=== PATIENT | female | born 1970 | race Caucasian/White ===

== ENCOUNTER 2016-07-17 10:36 | Day surgery (SDC) | payer BC ==
[2016-07-17] MEDS ORDERED: Lactated Ringers 1,000 ML IV SCH (11:00)
[2016-07-17] MEDS ORDERED: Ferric Subsulfate Topical Soln 8 GM (8 ML) Bottle ONE (11:27)
[2016-07-17] MEDS ORDERED: Oxytocin/Normal Saline 30 UNIT/500 ML BAG ONE (11:27)
[2016-07-17] MEDS ORDERED: Silver Nitrate Applicator Each ONE (11:27)
[2016-07-17] MEDS ORDERED: Ketorolac 30 MG/ML SDV ONE (12:07)
[2016-07-17] MEDS ORDERED: Midazolam 1 MG/ML 2 ML SDV ONE (12:07)
[2016-07-17] MEDS ORDERED: fentaNYL 100 MCG/2 ML SDV ONE (12:07)
[2016-07-17] MEDS ORDERED: Propofol 200 MG/20 ML SDV ONE (12:07)
[2016-07-17] MEDS ORDERED: Ondansetron 4 MG/2 ML SDV ONE (12:07)
[2016-07-17] MEDS ORDERED: Succinylcholine 200 MG/10 ML MDV ONE (12:08)
[2016-07-17] MEDS ORDERED: Lidocaine 2% 20 ML MDV ONE (12:08)
[2016-07-17] MEDS ORDERED: ceFAZolin 2 GM in Premix Bag 1 BAG IV ONE (12:15)
[2016-07-17] MEDS ORDERED: Glycopyrrolate 0.2 MG/ML 2 ML SDV ONE (12:16)
--- NOTE | 2016-07-17 12:26 | HP ---
The patient will be having surgery at [facility] at about 12:30 p.m. today, about an hour from now or less. HISTORY OF PRESENT ILLNESS: This patient is a 46-year-old, 4, para 2 patient, who does have a 10-year-old and an 11-year-old child at home. This patient has had two previous sections. She has been followed by Dr. Shankar and unfortunately, recent transvaginal ultrasound revealed no heart tones or no viability whatsoever. That ultrasound was also confirmed at the hospital's Radiology Department. This past Friday, she would have been approximately 7 weeks and 2 days' gestation. She is known to have no viability as mentioned above. We did see her in the office this past Friday, the 15 of July, and gave her the options of possible Cytotec to evacuate the uterus versus possible D and C. The patient and I and her chose to try Cytotec first, she has taken that off and on for the past 2 days and although she did pass a little bit of tissue day before yesterday, she has not completely evacuated the uterus yet. A followup ultrasound was done in Radiology yesterday and still did reveal a small amount of complex tissue in the lower uterine segment and in the cervical area. She did take Cytotec again last night as ordered and has not passed any further tissue, and she does continue to have intermittent cramping and intermittent bleeding as mentioned above. Her blood type is definitely O positive. PAST OBSTETRICAL HISTORY: She did require a D and C for a miscarriage when she was about 10 weeks along two years ago. She has had two prior sections as mentioned above. She does have advanced maternal age. PAST MEDICAL HISTORY: She denies any knowledge of heart, lung, liver, or kidney disease. ALLERGIES: Sulfa medications. PREVIOUS SURGERIES: x2. T and A, and D and C as well as cone biopsy previously. Her blood type is O positive. MEDICATIONS AT PRESENT: She has recently completed Cytotec as well as Percocet p.r.n. She did stop her vitamins one week ago. FAMILY HISTORY: Reveals that one sister did have breast cancer in her late 40s, she is alive and well. Mrs. Monte does get yearly mammograms and breast exams by her primary care provider. PHYSICAL EXAMINATION: Vital Signs: Blood pressure 128/76. HEENT: The pharynx is negative. Pupils are equal and reactive. Sclerae are nonicteric. Lungs: Clear to auscultation. Heart: Regular rhythm without murmur. Abdomen: Soft and nontender with no palpable masses. There is negative CVA tenderness. Recent pelvic examination in the office yesterday did reveal a small amount of tissue that was in the cervix that we did remove. The cervix was still open slightly. She did have a moderate amount of bleeding yesterday and considerably more bleeding than that on Friday of this week. Uterus is felt to be about 6 weeks' size and somewhat retroverted. There were no adnexal masses or tenderness. IMPRESSION: Incomplete miscarriage with unsuccessful evacuation of the uterus with Cytotec on a nonviable 7 weeks 2 days' gestational . Her blood type is O positive. We did thoroughly discuss with her the options of evacuation of the uterus such as Cytotec which has been tried already. Because of her failure to achieve evacuation of the uterus, we will proceed with D and C at the patient's request and I certainly agree with that 100%. We did explain the goals and the procedures with the D and C. We also discussed the slight possibility of complications and adverse outcomes and adverse side effects from the D and C. She does give us consent to proceed with the D and C, and all of her questions have been answered as mentioned above. [facility] /[id number]
[2016-07-17] MEDS ORDERED: Oxytocin/Normal Saline 30 UNIT/500 ML BAG IV SCH (12:30)
[2016-07-17] MEDS ORDERED: Morphine 2 MG/ML Syringe ONE (13:48)
[2016-07-17] MEDS ORDERED: fentaNYL 100 MCG/2 ML SDV IV ONE (14:05)
[2016-07-17] MEDS ORDERED: Morphine 2 MG/ML Syringe IV ONE (14:05)
[2016-07-17] MEDS ORDERED: Ketorolac 30 MG/ML SDV IVPUSH ONE (14:05)
[2016-07-17] MEDS ORDERED: Midazolam 1 MG/ML 2 ML SDV IV ONE (14:05)
[2016-07-17] MEDS ORDERED: Propofol 200 MG/20 ML SDV IV ONE (14:05)
[2016-07-17] MEDS ORDERED: Ondansetron 4 MG/2 ML SDV IV ONE (14:05)
[2016-07-17] MEDS ORDERED: Lidocaine 2% 20 ML MDV INJECT ONE (14:05)
[2016-07-17] MEDS ORDERED: Glycopyrrolate 0.2 MG/ML 2 ML SDV IM ONE (14:05)
[2016-07-17 15:04] VITALS: BP 105/65
--- NOTE | 2016-07-17 20:45 | OR ---
DATE: 07/17/2016 LOCATION: [facility]. PREOPERATIVE DIAGNOSIS: demise at 7 weeks 2 days' gestation with incomplete miscarriage and unsuccessful trial with Cytotec to evacuate the uterus. OPERATION PERFORMED: D and C. POSTOPERATIVE DIAGNOSIS: demise at 7 weeks 2 days' gestation with incomplete miscarriage and unsuccessful trial with Cytotec to evacuate the uterus. ANESTHESIA: General. ESTIMATED BLOOD LOSS: 100 mL. COMPLICATIONS: None. DESCRIPTION OF PROCEDURE: After the induction of satisfactory general anesthesia and with the patient routinely prepped and draped in a dorsal lithotomy position, the pelvic exam was again completed. This revealed a 6-week size uterus in the mid to retro position. There were no adnexal masses palpated. A single-tooth tenaculum was attached to the anterior lip of the cervix, and her cervix does have a post cone biopsy appearance, and it is deviated somewhat off to her left side and somewhat scarred. The cervix was grasped with a single-tooth tenaculum as mentioned above, and the uterus was very carefully and gently sounded to #7 or 7 cm. The uterus was in the mid to retro position slightly. Now, the endocervical canal was progressively dilated to a #8 with the Casarez dilators. Now, the curette was introduced, and a slight to moderate amount of tissue was obtained on the curettage. Great caution was taken to make sure that all aspects of the endometrial cavity were carefully and systematically curetted, but being very cautious to not over curette this delicate organ. The narrow-nosed uterine packing forceps was now carefully introduced, and a slight amount of other tissue was obtained. Now, the sharp curette was introduced 1 more time, and the endometrial cavity was carefully explored and carefully curetted, and no further tissue was obtained. IV intraoperative Pitocin was now begun. All of the instruments were now removed. The bimanual exam was again repeated and was unchanged from before. The sponge and instrument count was reported as correct. Estimated blood loss was approximately 100 mL or less. All of the tissue that was removed from the uterine curettings were submitted to the pathologist. [facility] /[id number]
== END 2016-07-17 15:13 | disposition home or self-care (01) ==
LOC: DL.SDS 10:36
PROVIDERS: ATTEND Obstetrics & Gynecology
DX: O36.4XX1 Maternal care for intrauterine death, fetus 1 (principal); O03.4 Incomplete spontaneous abortion without complication; Z88.2 Allergy status to sulfonamides; Z79.899 Other long term (current) drug therapy; Z98.890 Other specified postprocedural states
CPT/HCPCS: 36415; 59820; 84702; 85027; J0690; J1885; J2250; J2270; J2405; J2590; J2704; J3010; J7120; J3490

== ENCOUNTER 2022-10-30 06:22 | Day surgery (SDC) | payer BC ==
[2022-10-30] MEDS ORDERED: Sodium Chloride 0.9% 10 ML Syringe FLUSH PRN (06:30)
[2022-10-30] MEDS ORDERED: Lactated Ringers 1,000 ML IV SCH (06:30)
[2022-10-30] MEDS ORDERED: Dextrose 5%-0.45% NaCl 1,000 ML IV SCH (06:30)
[2022-10-30 08:51] VITALS: PULSE 63
[2022-10-30 09:24] VITALS: BP 118/67
== END 2022-10-30 09:15 | disposition home or self-care (01) ==
LOC: DL.ENDO 06:22
PROVIDERS: ATTEND Internal Medicine Gastroenterology
DX: Z12.11 Encounter for screening for malignant neoplasm of colon (principal); E66.09 Other obesity due to excess calories; N30.10 Interstitial cystitis (chronic) without hematuria; Z98.890 Other specified postprocedural states; Z68.30 Body mass index [BMI] 30.0-30.9, adult; Z88.2 Allergy status to sulfonamides; Z79.899 Other long term (current) drug therapy
CPT/HCPCS: 00812; 81025; J7120

== ENCOUNTER 2023-08-09 06:57 | Emergency (ER) | payer BC ==
[2023-08-09 07:47] LABS: APPEARANCE,URINE CLEAR (CLEAR); BILIRUBIN,URINE NEGATIVE (NEGATIVE); COLOR,URINE YELLOW (YELLOW); GLUCOSE,URINE NEGATIVE (NEGATIVE); KETONES,URINE NEGATIVE (NEGATIVE); LEUKOCYTE ESTERASE,URINE TRACE (NEGATIVE); NITRITE,URINE NEGATIVE (NEGATIVE); OCCULT BLOOD,URINE LARGE (NEGATIVE); PROTEIN,URINE NEGATIVE (NEGATIVE); UROBILINOGEN,URINE 0.2 mg/dL (0.2-1.0)
[2023-08-09 07:51] VITALS: BP 127/85; PULSE 73
[2023-08-09 08:31] LABS: BACTERIA,URINE FEW /HPF (0-FEW/HPF); EPITHELIAL CELLS,URINE NOT SEEN /HPF (NOT SEEN); WBC,URINE 0-5 /HPF (0-5/HPF)
== END 2023-08-09 08:48 | disposition home or self-care (01) ==
LOC: DL.ED 06:57
DX: T83.9XXA Unspecified complication of genitourinary prosthetic device, implant and graft, initial encounter (principal); E66.9 Obesity, unspecified; Z79.899 Other long term (current) drug therapy; Z88.1 Allergy status to other antibiotic agents; Z68.30 Body mass index [BMI] 30.0-30.9, adult
CPT/HCPCS: 81001; 87086; 99283; 99284